=== PATIENT | male | born 1995 | race Two or more races ===

== ENCOUNTER 2020-07-05 22:54 | Emergency (ER) | payer OTHER ==
[~2020-07-05] VITALS: Ht 188 cm; Wt 79.4 kg
[2020-07-05 22:54] VITALS: BP 124/79
[2020-07-05] MEDS ORDERED: TDAP [DIPH/PERTUSSIS/TET] 0.5 ML VIAL IM ONE (23:07)
[2020-07-05] MEDS: TDAP [DIPH/PERTUSSIS/TET] 0.5 ML VIAL IM ONE (23:12)
--- NOTE | 2020-07-05 23:36 | NUR ---
XRAY DONE AT BEDSIDE.
[2020-07-06] MEDS ORDERED: LIDOCAINE HCL/PF 1% 30 ML SDV ONE (00:13)
== END 2020-07-06 00:34 | disposition home or self-care (01) ==
LOC: ER 23:00
DX: S81.811A Laceration without foreign body, right lower leg, initial encounter (principal); W10.8XXA Fall (on) (from) other stairs and steps, initial encounter; Y93.89 Activity, other specified; Y92.89 Other specified places as the place of occurrence of the external cause; Y99.8 Other external cause status
CPT/HCPCS: 12002; 73590; 73610; 90471; 90715; 99284; A6403; J3490

== ENCOUNTER 2020-07-10 20:41 | Emergency (ER) | payer OTHER ==
[~2020-07-10] VITALS: Ht 185.4 cm; Wt 79.4 kg
[2020-07-10 20:45] VITALS: BP 135/81
== END 2020-07-10 21:01 | disposition home or self-care (01) ==
LOC: ER 20:45
DX: S81.811D Laceration without foreign body, right lower leg, subsequent encounter (principal); X58.XXXD Exposure to other specified factors, subsequent encounter

== ENCOUNTER 2020-07-16 19:00 | Emergency (ER) | payer OTHER ==
[~2020-07-16] VITALS: Ht 185.4 cm; Wt 81.6 kg
[2020-07-16 19:03] VITALS: BP 128/71
--- NOTE | 2020-07-16 19:26 | NUR ---
Patient discharged to home in stable condition. Written and verbal after care instructions given. Patient verbalizes understanding of instruction.
== END 2020-07-16 19:28 | disposition home or self-care (01) ==
LOC: ER 19:03
DX: S81.811D Laceration without foreign body, right lower leg, subsequent encounter (principal); Z87.820 Personal history of traumatic brain injury; X58.XXXD Exposure to other specified factors, subsequent encounter

== ENCOUNTER 2020-10-11 19:11 | Emergency (ER) | payer OTHER ==
[~2020-10-11] VITALS: Ht 185.4 cm; Wt 79.4 kg
[2020-10-11 19:55] VITALS: BP 127/68
== END 2020-10-11 20:24 | disposition home or self-care (01) ==
LOC: ER 19:17
DX: L03.316 Cellulitis of umbilicus (principal)

== ENCOUNTER 2021-03-08 23:17 | Emergency (ER) | payer MEDICAID ==
[~2021-03-08] VITALS: Ht 185.4 cm; Wt 79.4 kg
--- NOTE | 2021-03-08 23:21 | NUR ---
pt bibself c/o diarrhea x1 day s/p eating salmon. Pt aaox4 breathing evenly and unlabored. pt denies n/v, but states he "has no apetite". Pt attached to monitor and pox. Pt skin warm, dry, and intact. Left hand iv 20g initiated. blood obtained and sent to lab. pt given blanket and call light within reach
[2021-03-08] MEDS: IV NS 0.9% 1,000 ML BAG IV ONE (23:30)
[2021-03-08 23:48] LABS: BASOPHILS # (AUTO) 0.1 /CMM (0.0-0.2); BASOPHILS % (AUTO) 0.5 % (0.0-2.0); HEMATOCRIT 46 % (39-51); HEMOGLOBIN 15.1 g/dL (13.5-17.5); LYMPHOCYTES # (AUTO) 1.5 /CMM (0.8-4.8); LYMPHOCYTES % (AUTO) 11.7 % (20.0-44.0); MEAN CORPUSCULAR HGB CONC 33 g/dl (31.0-36.0); MEAN CORPUSCULAR VOLUME 84 fL (80-96); MONOCYTES % (AUTO) 7.6 % (2.0-12.0); NEUTROPHILS # (AUTO) 10.2 /CMM (1.8-8.9); NEUTROPHILS % (AUTO) 80.2 % (43.0-81.0); PLATELET COUNT (AUTO) 202 /CMM (150-450); RED BLOOD CELL COUNT(AUTO) 5.43 MIL/uL (4.5-6.0); WHITE BLOOD COUNT (AUTO) 12.8 K/uL (4.3-11.0)
[2021-03-08 23:52] LABS: BILIRUBIN,URINE Negative (NEGATIVE); COLOR,URINE YELLOW (YELLOW); LEUKOCYTE ESTERASE ,URINE Negative (NEGATIVE); NITRITE, URINE Negative (NEGATIVE); PH,URINE 5.5 (5.0-8.0); PROTEIN,URINE 30 mg/dl (NEGATIVE); UGLUCOSE Negative (NEGATIVE); UROBILINOGEN,URINE 0.2 EU/dL (0.2)
[2021-03-08 23:58] LABS: CREATININE 1.1 mg/dL (0.6-1.3); POTASSIUM 3.5 mmol/L (3.5-5.1)
[2021-03-09 00:04] LABS: ALBUMIN 4.4 g/dL (3.4-5.0); BILIRUBIN,DIRECT 0.1 mg/dL (0.0-0.2); BILIRUBIN,TOTAL 0.3 mg/dL (0.2-1.0); TOTAL PROTEIN, SERUM 8.5 g/dL (6.4-8.2)
[2021-03-09] MEDS: KETOROLAC TROMETHAMINE INJ 30 MG/ML VIAL IV ONE (00:30)
[2021-03-09] MEDS ORDERED: KETOROLAC TROMETHAMINE INJ 30 MG/ML VIAL ONE (00:33)
--- NOTE | 2021-03-09 00:44 | NUR ---
Patient discharged to home in stable condition. Written and verbal after care instructions given. Patient verbalizes understanding of instruction. IV removed. Catheter intact and site benign. Pressure and 4x4 applied to site. No bleeding noted. Pt ambulatory with a steady gait
[2021-03-09 00:46] VITALS: BP 128/77
[2021-03-09 01:01] LABS: RBC,URINE 0-2 /HPF (0-2)
[2021-03-09 01:02] LABS: BACTERIA,URINE None seen /HPF (None Seen); MUCUS,URINE Rare /LPF (None Seen); SQUAMOUS EPITHELIAL CELL,UR None Seen /HPF (None Seen)
== END 2021-03-09 00:44 | disposition home or self-care (01) ==
LOC: ER 23:24
DX: A05.9 Bacterial foodborne intoxication, unspecified (principal); R19.7 Diarrhea, unspecified
CPT/HCPCS: 36415; 80048; 80076; 81001; 83690; 85025; 96361; 96374; 99283; J1885; J7030

== ENCOUNTER 2021-06-02 15:55 | Emergency (ER) | payer MEDICAID, OTHER ==
[~2021-06-02] VITALS: Ht 185.4 cm; Wt 79.4 kg
[2021-06-02 16:10] VITALS: BP 161/85
[2021-06-02] MEDS ORDERED: GUAI-671 PO (16:13)
[2021-06-02] MEDS ORDERED: AMOX500C2 PO (16:13)
--- NOTE | 2021-06-02 16:32 | NUR ---
Patient discharged to home in stable condition. Written and verbal after care instructions given. Patient verbalizes understanding of instruction.
== END 2021-06-02 16:32 | disposition home or self-care (01) ==
LOC: ER 15:59
DX: U07.1 COVID-19 (principal)